=== PATIENT | female | born 1985 | race Caucasian/White ===

== ENCOUNTER 2017-09-01 17:46 | Emergency (ER) | payer OTHER, BC ==
[~2017-09-01] VITALS: Ht 175.3 cm; Wt 129.6 kg
[~2017-09-01 17:46] MED LIST: NOHOMEMEDS
[2017-09-01] MEDS ORDERED: NAPROSYN500 MG PO (20:03)
[2017-09-01] MEDS ORDERED: FLEXERIL10 MG PO (20:03)
[2017-09-01] MEDS ORDERED: ULTRAM50 MG PO (20:03)
[2017-09-01 20:32] VITALS: BP 159/99
== END 2017-09-01 20:34 | disposition home or self-care (01) ==
LOC: RME 17:46 → EME 17:46 → RME 20:34
DX: M25.511 Pain in right shoulder (principal); I10 Essential (primary) hypertension; F17.200 Nicotine dependence, unspecified, uncomplicated
CPT/HCPCS: 73030